=== PATIENT | female | born 1990 | race Caucasian/White ===

== ENCOUNTER → 2017-12-10 11:05 | Outpatient (CLI) | payer SELFPAY ==
[2017-12-10 11:25] LABS: Glucose Challenge Gest 1H 50g 87 mg/dL (70-140)
[2017-12-10 11:34] LABS: Hematocrit 32.6 % (37-47); Hemoglobin 10.8 g/dl (12.0-15.0); Mean Corp Hgb Conc 33.1 g/gl (32-36); Mean Corpuscular Volume 93.7 fL (81-99); Mean Platelet Vol. 10.1 fl (6.2-12.0); Platelet Count 248 K/mm3 (150-450); RBC Distribution Width CV 12.8 % (11.6-14.6); RBC Distribution Width SD 41.9 fl (35.1-43.9); Red Blood Count 3.48 M/mm3 (4.2-5.4); Scan Indicated on CBC? Y/N NO; White Blood Count 13.7 K/mm3 (4.4-11.0)
== END ==
PROVIDERS: Visit Provider Obstetrics & Gynecology
DX: Z34.83 Encounter for supervision of other normal pregnancy, third trimester (principal)
CPT/HCPCS: 82950; 85027

== ENCOUNTER → 2018-02-03 13:08 | Outpatient (CLI) | payer SELFPAY ==
[2018-02-03 14:29] LABS: Group B Strep DNA By PCR Negative (Negative); Internal Control PASS; Probe Check PASS; Specimen Processing Control PASS
== END ==
PROVIDERS: Visit Provider Obstetrics & Gynecology
DX: Z36.85 Encounter for antenatal screening for Streptococcus B (principal)
CPT/HCPCS: 87081; 87653

== ENCOUNTER 2018-03-03 03:11 | Inpatient (IN) | payer SELFPAY ==
[2018-03-03 03:52] VITALS: BMI 36.5
[2018-03-03 06:54] LABS: Hematocrit 39.5 % (37-47); Hemoglobin 13.4 g/dl (12.0-15.0); Mean Corp Hgb Conc 33.9 g/gl (32-36); Mean Corpuscular Hgb 31.8 pg (27.0-32.0); Mean Corpuscular Volume 93.8 fL (81-99); Mean Platelet Vol. 9.8 fl (6.2-12.0); Platelet Count 194 K/mm3 (150-450); RBC Distribution Width CV 13.7 % (11.6-14.6); RBC Distribution Width SD 46.5 fl (35.1-43.9); Red Blood Count 4.21 M/mm3 (4.2-5.4); White Blood Count 13.5 K/mm3 (4.4-11.0)
[2018-03-03 06:58] LABS: Scan Indicated on CBC? Y/N NO
--- NOTE | 2018-03-03 07:48 | PCM.PN.BLA ---
Progress Note LABOR PROGRESS NOTE Sitting up in rocking chair talking with nurse AVSS CBC back and plts OK for epidural , which she plans. Category I tracing FHT 130-140s with accels. UCs q 1-5 mins CX: /-2 AROM clear A/P: 40 3/7 wk early labor. Plans epidural. AROM performed. Pitocin order given for PRN use, if needed. Continue labor. Anticipate
[2018-03-03] MEDS: Lactated Ringers 1,000 ML 50 ML IV ×3 (07:55→13:21)
[2018-03-03] MEDS: Oxytocin 30 units/NS 500 ml 30 UNITS/500 ML IV.SOLN IV (09:00)
--- NOTE | 2018-03-03 12:32 | PCM.PN.BLA ---
Progress Note LABOR PROGRESS NOTE Comfortable w/ epidural AVSS Pitocin at 6 mIU/min EFM: 120-130 avg variability. accels. Prolonged accels at times. Category I tracing UCs q 3-4 mins CX: 4-5/75/-2 VTX A/P: 40 3/7 wk EGA Spont labor AROM and pitocin augmentation. continue labor augmentation. Anticipate
[2018-03-03] MEDS: Oxytocin 30 units/NS 500 ml 30 UNITS/500 ML IV.SOLN 334 UNITS IV (14:45)
[2018-03-03] MEDS: Methylergonovine 0.2 MG/ML Ampul IM (14:50)
[2018-03-03] MEDS: Ondansetron 4 MG/2 ML Vial IV (15:02)
[2018-03-03] MEDS: Oxytocin 30 units/NS 500 ml 30 UNITS/500 ML IV.SOLN 167 UNITS IV (15:15)
--- NOTE | 2018-03-03 16:00 | PCM.OB.VAG ---
Vaginal Delivery Maternal Presentation: Active Labor 40 3/7 wk labor Amniotic Membrane Rupture Type: Artificial Amniotic Fluid Description: Lightly stained meconium Final NICOLÁS: 02/28/18 Final NICOLÁS Source: US <20 weeks Gestational age: 40 Weeks and 3 Days [place] doctor who attended delivery (if requested by OB): Yolanda Skinner Date of Procedure: 03/03/18 Pre-Operative Diagnosis: 40 3/7 labor Post-Operative Diagnosis: same Surgery/ Procedure Performed: Spontaneous Vaginal Delivery Anesthesiologist: Sekou Barry Type of Anesthesia: Epidural Description of Procedure: of a fuentes viable male over intact perineum. Head delivered HEMA No nuchal cord noted. R hand at face and R arm reduced prior to delivery of anterior (L) shoulder. Vigorous noted. OP and nares bulb suctioned after delivery. Baby handed to father, who then placed infant on maternal abdomen. Vigorous, crying . Dr Skinner present for delivery d/t light mec stained fluid noted at amniotomy prior. Delayed cord clamping. Cord then clamped x two and cut. Routine cord blood for typing PP exam: no laceration. no repair Placenta delivered by spont expulsion, expression. 3V, normal appearing, intact with trailning membranes. Mild degree of uterine atony noted. Pitocin increased, bimanual massage with good results but temporary. Methergine 0.2 mg IM given x one. EBL 350 cc Ray Carlin counts correct x two, Presentation: Vertex, HEMA Placental Delivery Description: Spontaneous, Expressed Cord Vessel Description: 3 Vessels Cord Entanglement: None Estimated Blood Loss: 350 A gender: Male (1 minute): 8 (5 minute): 9 Episiotomy Description: None Laceration: None Medications given after delivery: IV Pitocin, IM Methergin - mild degree of uterine atony noted after delivery.
--- NOTE | 2018-03-03 16:08 | PCM.DCVAG ---
Discharge Diet: No Restrictions Discharge Activity: May Shower, May Take a Tub Bath May resume sexual activity in: 4-6 weeks Additional Activity Instructions:: Nothing in the vagina for 4-6 weeks. You may return to work/school in 6 weeks. Additional Instructions: If you experience any of the following, contact your healthcare provider. Bleeding that soaks a pad every hour for 2 hours Fever 100.4 or higher Unrelieved abdominal pain Problems urinating (including inability to urinate or burning while urinating). Visual changes Severe headache Flu-like symptoms Pain or redness in one of both of your breasts Pain, warmth, tenderness or swelling in your legs, especially the calf area Frequent nausea and vomiting Symptoms of depression or anxiety If you experience any of the following, call 911 or go to the nearest Emergency Room. Chest pain Problems breathing Seizure activity Partial or complete paralysis of a body part, slurred speech, weakness or drooping of the face, or a sudden inability to walk or hold your balance Allergies/Adverse Reactions: Allergies No Known Allergies Allergy (Verified 04/04/15 19:17) Medications to take at Discharge Vits [Prenatabs FA ] 1 tab PO DAILY 04/04/15 Iron 1 tab PO DAILY 03/03/18 Orders to be completed after discharge: Electric breast pump Time Frame: 1 Year, Location: None Selected Please Follow Up With: Leelee Hernandez MD - [phone] When: Call to make an appointment with your doctor in 6 weeks. Primary Care Physician: Wilfredo Garzon [Primary Care Provider] -
--- NOTE | 2018-03-03 16:10 | DCINST_ITS ---
Discharge Diet: No Restrictions Discharge Activity: May Shower, May Take a Tub Bath May resume sexual activity in: 4-6 weeks Additional Activity Instructions:: Nothing in the vagina for 4-6 weeks. You may return to work/school in 6 weeks. Additional Instructions: If you experience any of the following, contact your healthcare provider. * Bleeding that soaks a pad every hour for 2 hours * Fever 100.4 or higher * Unrelieved abdominal pain * Problems urinating (including inability to urinate or burning while urinating) . * Visual changes * Severe headache * Flu-like symptoms * Pain or redness in one of both of your breasts * Pain, warmth, tenderness or swelling in your legs, especially the calf area * Frequent nausea and vomiting * Symptoms of depression or anxiety If you experience any of the following, call 911 or go to the nearest Emergency Room. * Chest pain * Problems breathing * Seizure activity * Partial or complete paralysis of a body part, slurred speech, weakness or drooping of the face, or a sudden inability to walk or hold your balance Allergies/Adverse Reactions: Allergies No Known Allergies Allergy (Verified 04/04/15 19:17) Medications to take at Discharge Vits [Prenatabs FA ] 1 tab PO DAILY 04/04/15 Iron 1 tab PO DAILY 03/03/18 Orders to be completed after discharge: Electric breast pump Time Frame: 1 Year, Location: None Selected Please Follow Up With: Leelee Hernandez MD - [phone] When: Call to make an appointment with your doctor in 6 weeks. Primary Care Physician: Wilfredo Garzon [Primary Care Provider] -
[2018-03-03] MEDS: Ibuprofen 600 MG Tablet PO (20:01)
[2018-03-03 20:03] VITALS: BP 110/71; PULSE 100; RESP 18; TEMP 36.3
[2018-03-03 23:54] VITALS: BP 119/47; PULSE 94; RESP 18; TEMP 36.6; O2SAT 96
[2018-03-04 04:00] VITALS: BP 112/65; PULSE 90; RESP 16; TEMP 36.4; O2SAT 98
--- NOTE | 2018-03-04 07:56 | PCM.PN.OB ---
Subjective: PPD#1 Doing well. Nursing a lot. Baby doing well. Would like to go home tomorrow. Planning to ask for stool softener pain control adequate. Baby 8# 3 oz at . Objective: Sitting up semirecumbent in bed. Holding and nursing baby - Physical Exam General: Alert, Oriented x3, Cooperative, No apparent distress HEENT: Atraumatic Neck: Supple Abdomen: Soft - Fundus firm NT at umbilicus Neurological: Cranial nerves II-XII grossly intact Psych/Mental Status: Normal Affect Vital Signs Temp Pulse Resp BP Pulse Ox 97.6 F L 90 16 112/65 98 03/04/18 04:00 03/04/18 04:00 03/04/18 04:00 03/04/18 04:00 03/04/18 04:00 Oxygen Delivery Method Room Air Weight: 90.628 kg Body Mass Index (BMI) 36.5 Intake and Output for Last 24 Hours 03/02/18 03/03/18 03/04/18 23:59 23:59 23:59 Output Total 300 / 300 Balance -300 / -300 Laboratory Tests Past 24 Hrs 03/03/18 06:40 Blood Type O POSITIVE Antibody Screen NEGATIVE Medical Necessity - Tobacco Use Smoking Status: Never smoker Assessment/Plan PPD#1 Stable pp. Continue routine pp care
[2018-03-04 08:00] VITALS: BP 126/59; PULSE 94; RESP 16; TEMP 36.3
[2018-03-04] MEDS: Senna/Docusate Sodium 1 Tablet PO (08:13)
[2018-03-04] MEDS: Ibuprofen 600 MG Tablet PO (08:14)
[2018-03-04] MEDS: Prenatal Vits Tablet 1 TABLET PO (08:40)
[2018-03-04 12:00] VITALS: BP 125/69; PULSE 85; RESP 18; TEMP 36.2
[2018-03-04 16:24] VITALS: BP 121/70; PULSE 88; RESP 16; TEMP 36.6
[2018-03-04 19:47] VITALS: BP 117/77; PULSE 92; RESP 16; TEMP 36.6; O2SAT 95
[2018-03-05 02:05] VITALS: BP 107/69; PULSE 88; RESP 18; TEMP 36.8; O2SAT 98
--- NOTE | 2018-03-05 07:31 | PCM.PN.OB ---
Subjective: PPD#2 Doing well. Nursing all night, cluster feeding No concerns voiced. Minimal pain and bleeding. - Physical Exam General: Alert, Oriented x3, Cooperative, No apparent distress HEENT: Atraumatic Neck: Supple Abdomen: Soft - Fundus firm NT at 1-2 cm inferior to umbilicus Psych/Mental Status: Normal Affect Vital Signs Temp Pulse Resp BP Pulse Ox 98.2 F 88 18 107/69 98 03/05/18 02:05 03/05/18 02:05 03/05/18 02:05 03/05/18 02:05 03/05/18 02:05 Oxygen Delivery Method Room Air Weight: 90.628 kg Body Mass Index (BMI) 36.5 Intake and Output for Last 24 Hours 03/03/18 03/04/18 03/05/18 23:59 23:59 23:59 Output Total 300 / 300 Balance -300 / -300 Medical Necessity - Tobacco Use Smoking Status: Never smoker Assessment/Plan PPD#2 Stable pp. D/C home today. RTO in 6 wk for pp check.
[2018-03-05] MEDS: Senna/Docusate Sodium 1 Tablet PO (08:39)
[2018-03-05] MEDS: Prenatal Vits Tablet 1 TABLET PO (08:39)
[2018-03-05 09:51] VITALS: PULSE 78; RESP 18; TEMP 36.6
[2018-03-05 14:00] VITALS: BP 110/68; PULSE 72; RESP 16; TEMP 36.6
[2018-03-05 14:30] VITALS: BP 110/68; PULSE 72; RESP 16; TEMP 36.6
== END 2018-03-05 14:15 | disposition home or self-care (01) | DRG 775 ==
LOC: WPOUT 03:33 → WP 03:34 → WPOUT 06:22
PROVIDERS: Admitting Provider Obstetrics & Gynecology; Visit Provider Obstetrics & Gynecology
DX: O48.0 Post-term pregnancy (principal); Z3A.40 40 weeks gestation of pregnancy; Z37.0 Single live birth; O77.0 Labor and delivery complicated by meconium in amniotic fluid; O62.2 Other uterine inertia
CPT/HCPCS: 59025; 59050; 85027; 86850; 86900; 99218; J7120; G0378; J2405